=== PATIENT | male | born 1975 | race Caucasian/White ===

== ENCOUNTER → 2023-11-17 19:52 | Outpatient (REF) | payer OTHER, SELFPAY | LOC: MRI 19:52 | PROVIDERS: ATTENDING PHYSICIAN Family Medicine Sports Medicine; FAMILY PHYSICIAN Internal Medicine | DX: D16.9 Benign neoplasm of bone and articular cartilage, unspecified (principal) | CPT/HCPCS: 73723; A9575 ==

== ENCOUNTER 2024-01-23 23:03 | Inpatient (IN) | payer OTHER, SELFPAY ==
[2024-01-23 18:33] VITALS: BP 144/104
[2024-01-23 18:54] LABS: % Basophils 0.9 % (0-2); % Eosinophils 5.6 % (0-6); % Immature Granulocytes 0.3 % (0-0.5); % Lymphocytes 19.2 % (20.5-51.1); % Monocytes 6.4 % (1.7-9.3); % Neutrophils 67.6 % (42.2-75.2); Absolute Basophils 0.1 10^3/uL (0-0.2); Absolute Eosinophils 0.6 10^3/uL (0-0.7); Absolute Lymphocytes 1.9 10^3/uL (1.2-3.4); Absolute Monocytes 0.6 10^3/uL (0.1-0.6); Absolute Neutrophils 6.6 10^3/uL (1.4-6.5); Hematocrit 46.6 % (39.0-52.0); Hemoglobin 16.4 g/dL (13.0-18.0); Mean Corp Hgb Conc. 35.2 g/dL (33.0-37.0); Mean Corpuscular Hgb 30.8 pg (27.0-31.0); Mean Corpuscular Volume 87.6 fL (80.0-94.0); Mean Platelet Volume 10.8 fL (7.4-10.4); Nucleated Red Blood Cells % 0 % (-); Platelet Count 190 10^3/uL (130-400); Red Blood Cell Count 5.32 10^6/uL (4.70-6.10); Red Cell Dist. Width 12.6 % (11.5-14.5); White Blood Cell Count 9.8 10^3/uL (4.8-10.8)
[2024-01-23 19:08] LABS: ALT (SGPT) 29 U/L (0-50); AST (SGOT) 25 U/L (17-59); Albumin 4.8 g/dl (3.5-5.0); Alkaline Phosphatase 82 U/L (38-126); Blood Urea Nitrogen 21 mg/dl (9-20); Calcium 9.2 mg/dl (8.4-10.2); Carbon Dioxide 30 mmol/L (22-30); Chloride 101 mmol/L (98-107); Glucose 169 mg/dl (70-99); Potassium 4.3 mmol/L (3.5-5.1); Sodium 139 mmol/L (135-145); Total Bilirubin 0.6 mg/dl (0.2-1.3); eGFR > 60.00
--- NOTE | 2024-01-23 20:55 | ED.GENMED ---
History of Present Illness
<RICK Castillo - Last Filed: 01/23/24 23:50>
General
Chief Complaint: DVT/Possible Blood Clot
Source: patient
Exam Limitations: none
Time Seen by Provider: 01/23/24 20:34
History of Present Illness
History of Present Illness:
This is a 48 year old male that comes in with c/o left leg swelling. States that he went to the PCP yesterday as he was SOB. States that he worked out and he was very winded. States that he was given an Inhaler and this did not help. Then today his
left leg is swollen. State that he called the PCP and was told to come to the ER. States that he still feels SOB. Denies any fever, chills, chest pain, abd pain, nausea, vomiting, diarrhea, headache, dizziness, urinary burning.
Past History
<RICK Castillo - Last Filed: 01/23/24 23:50>
Past History
ED Past Medical History: Other (Hiatal hernia); Negative Asthma, HTN, Hypercholesterolemia or NIDDM
ED Past Surgical History: None
Social History
Tobacco: Non-smoker
Alcohol: Occasional
Personal:
Living: with family
Review of Systems
<RICK Castillo - Last Filed: 01/23/24 23:50>
Review of Systems
All Other Systems: ROS reviewed and negative except as documented in HPI and ROS
Constitutional: Reports no symptoms; Denies fever or chills
EENT: Reports no symptoms
Respiratory: Reports trouble breathing; Denies cough
Cardiac: Reports no symptoms; Denies chest pain
ABD/GI: Reports no symptoms; Denies abdominal pain, nausea, vomiting or diarrhea
: Reports no symptoms; Denies dysuria, frequency or urgency
Musculoskeletal: Reports edema (left lower leg with redness)
Skin: Reports other (Redness left lower leg)
Neurological: Reports no symptoms; Denies dizzy or headache
Psychiatric: Reports no symptoms
Phy Exam
<RICK Castillo - Last Filed: 01/23/24 23:50>
General Physical Exam
General Presentation: no apparent distress
General age: appears stated age
General Skin: warm and dry
General Habitus: normal
General Mental: alert
General Hydration: appears well hydrated
ENT Exam
ENT Exam: TM's normal, pharynx normal and neck supple
Eye Exam
Eye Exam: EOMI
Cardiovascular Exam
Cardiovascular Exam: regular rate/rhythm, no murmur and normal peripheral pulses
Pulmonary Exam
Pulmonary Exam: lungs clear, no respiratory distress, no rales, chest non tender, no crackles, no rhonchi, no wheezing and no cough
Gastrointestinal Exam
Gastrointestinal Exam: normal bowel sounds, non tender, soft, no organomegaly, no pulsatile mass and non distended
Musculoskeletal Exam
Musculoskeletal Exam: full ROM and edema (Left lower leg +1 pitting )
Skin Exam
Skin Exam: normal color, warm/dry, no petechia and redness (Left lower leg)
Psychiatric Exam
Psychiatric Exam: normal mood/affect
Course
<RICK Castillo - Last Filed: 01/23/24 23:50>
Orders/Labs/Results
Orders:
Orders
01/23/24 Breakfast
Regular
01/23/24 18:38
Electrocardiogram (*1) Urgent
Reason for Study: Shortness of Breath
EKG- Treatment ONCE
US Periph Venous LOWER Ext LT Urgent
Comment:
Reason For Exam: pain, swelling
01/23/24 18:48
CMP [Comprehensive Metabolic Panel] Urgent
Complete Blood Count/With Diff Urgent
01/23/24 20:54
CT Chest Pe Study Urgent
Comment: Left lower leg Positive for DVT
Reason For Exam: SOB
01/23/24 20:55
0.9% Sodium Chloride 500 ml [Nss] 500 ml IV BOLUS
01/23/24 21:53
Heparin 7,600 units IV NOW STA
01/23/24 21:[address] Non Medication Order As Directed
Physician Order: PTT 6 hours after initial start of Heparin infusion
Above order entered?: Yes
01/23/24 21:59
PTT Urgent
Prothrombin Time Urgent
01/23/24 22:00
Heparin 84348 Units/250 ml 25,000 units in 250 ml IV PER PROTOCOL
Weight to be used for heparin protocol in kilograms (kg):: 95.3
Protocol:: DVT/PE
PTT Goal Range to be used:: PTT 73 to 111 seconds
Order type:: Initial
INITIAL Infusion Dose (UNITS/KG/hr) & then follow protocol:: 18 units/kg/hr
Infusion Dose in UNITS/hr & then follow protocol (UNITS/hr):: 1,700
INFUSION RATE in mL/hr & then follow protocol (mL/hr):: 17
For DVT/PE algorithm, re-bolus for low PTT?: Yes
PTT less than or equal to 64 seconds:: Re-bolus 80 units/kg (max 10,000units). Increase by 400 units/hr
(+ 4mL/hr)
PTT 64.1 to 72.9 seconds:: Re-bolus 40 units/kg (max 5,000 units). Increase by 200 units/hr
(+ 2mL/hr)
PTT 73 to 111 seconds:: Target Range. No change in rate.
PTT 111.1 to 130.9 seconds:: Decrease rate by 200 units/hr (- 2 mL/hr)
PTT 131 to 199.9 seconds:: HOLD for 1 hr. Then decrease by 300 units/hr (- 3mL/hr)
PTT greater than or equal to 200 seconds:: HOLD for 2 hrs & Notify Provider. Then decrease by 400 units/hr
(- 4mL/hr)
Lab follow-up:: Each change, PTT q6h until 2 consecutive are therapeutic. Then
PTT daily.
01/23/24 22:13
NT-proBNP Urgent
Troponin I Urgent
01/23/24 22:15
Heparin 3,800 units IV PRN PRN
Heparin 7,600 units IV PRN PRN
01/23/24 22:27
Admit/Transfer Patient As Directed
Co-Sign Provider:
Level of Care: Inpatient admission
Assign to:: Telemetry
Physician / Group: Filipe
Diagnosis: Pulmonary Embolism
Reason for Telemetry: Arrhythmia
Date to Stop Telemetry: 01/26/24
Time to Stop Telemetry: 11:00
Reason for Hospitalization: heparin drip
Expected length of stay greater than two midnights?: Yes
ELOS- Estimated Length of Stay in days: 3
I certify the patient meets the requirements for IP care: Yes
01/23/24 22:28
Code Status As Directed
Resuscitation Status: Full Code
01/23/24 23:00
Flush (0.9% Sodium Chloride) [Flush (Nss)] See Dose Instructions IV PER PROTOCOL
01/23/24 23:35
Acetaminophen [Tylenol] 650 mg PO Q4HPRN PRN
01/23/24 23:35
Echo 2D MMode Color/Doppler Routine
Reason for Study: pulmonary embolism
Consult Notification Routine
Specialty to Notify: Hematology
HEMATOLOGY CONSULT Routine
Consulting Provider: Tami Austin
Was physician already notified: No
Reason for consult: pulmonary embolism, T4 Lytic Lesion
Heparin Protocol- PTT Orders As Directed
PTT per Heparin protocol: -Obtain CBC and baseline PTT - if not already collected.
-Obtain PTT 6 hours from start of infusion. Then, every 6 hours until 2 consecutive
PTT's are therapeutic. Then, PTT Daily.
-With each rate change, obtain PTT every 6 hours until 2 consecutive PTT's are
therapeutic. Then, PTT Daily.
Activity As Directed
Activity Level: Out of Bed-Early Mobility
With Assistance
Notify MD As Directed
Notify physician if: PTT is greater than or equal to 200.
Vital Signs As Directed
Frequency: Per unit guidelines
01/24/24 04:30
PTT Urgent
01/24/24 06:00
Basic Metabolic Panel IN AM
Complete Blood Count/No Diff IN AM
01/25/24 06:00
Complete Blood Count/No Diff Q2D
Comment: notify provider: Platelet count < 130,000 or decrease by 50% from baseline
01/26/24 11:00
DC Protocol for Telemetry ONCE
01/27/24 06:00
Complete Blood Count/No Diff Q2D
Comment: notify provider: Platelet count < 130,000 or decrease by 50% from baseline
01/29/24 06:00
Complete Blood Count/No Diff Q2D
Comment: notify provider: Platelet count < 130,000 or decrease by 50% from baseline
01/31/24 06:00
Complete Blood Count/No Diff Q2D
Comment: notify provider: Platelet count < 130,000 or decrease by 50% from baseline
02/02/24 06:00
Complete Blood Count/No Diff Q2D
Comment: notify provider: Platelet count < 130,000 or decrease by 50% from baseline
02/04/24 06:00
Complete Blood Count/No Diff Q2D
Comment: notify provider: Platelet count < 130,000 or decrease by 50% from baseline
02/06/24 06:00
Complete Blood Count/No Diff Q2D
Comment: notify provider: Platelet count < 130,000 or decrease by 50% from baseline
02/08/24 06:00
Complete Blood Count/No Diff Q2D
Comment: notify provider: Platelet count < 130,000 or decrease by 50% from baseline
Abnormal Lab Results
01/23/24 01/23/24
18:48 21:59
MPV 10.8 H fL
(7.4-10.4)
Absolute Neuts (auto) 6.6 H 10^3/uL
(1.4-6.5)
Lymphocytes % 19.2 L %
(20.5-51.1)
PT 15.6 H Sec
(11.4-14.6)
BUN 21 H mg/dl
(9-20)
Glucose 169 H mg/dl
(70-99)
01/23/24 18:48
01/23/24 18:48
Slight Dehydration. Glucose nonfasting. PT 15.6 with INR 1.25, PTT 26.2, Troponin <0.012, Pro-BNP 31.3
Vital Signs
Initial and Last Documented VS:
Initial Vital Signs
Temp Pulse Resp BP Pulse Ox
99.1 F 97 16 144/104 95
01/23/24 18:33 01/23/24 18:33 01/23/24 18:33 01/23/24 18:33 01/23/24 18:33
Last Documented Vital Signs
Temp Pulse Resp BP Pulse Ox
99.1 F 81 19 157/89 92
01/23/24 18:33 01/23/24 23:15 01/23/24 23:15 01/23/24 23:00 01/23/24 23:15
<Андрей Austin DO - Last Filed: 01/23/24 22:15>
Orders/Labs/Results
Orders:
Orders
01/23/24 Breakfast
Regular
01/23/24 18:38
Electrocardiogram (*1) Urgent
Reason for Study: Shortness of Breath
EKG- Treatment ONCE
US Periph Venous LOWER Ext LT Urgent
Comment:
Reason For Exam: pain, swelling
01/23/24 18:48
CMP [Comprehensive Metabolic Panel] Urgent
Complete Blood Count/With Diff Urgent
01/23/24 20:54
CT Chest Pe Study Urgent
Comment: Left lower leg Positive for DVT
Reason For Exam: SOB
01/23/24 20:55
0.9% Sodium Chloride 500 ml [Nss] 500 ml IV BOLUS
01/23/24 21:53
Heparin 7,600 units IV NOW STA
01/23/24 21:[address] Non Medication Order As Directed
Physician Order: PTT 6 hours after initial start of Heparin infusion
Above order entered?: Yes
01/23/24 21:59
PTT Urgent
Prothrombin Time Urgent
01/23/24 22:00
Heparin 43502 Units/250 ml 25,000 units in 250 ml IV PER PROTOCOL
Weight to be used for heparin protocol in kilograms (kg):: 95.3
Protocol:: DVT/PE
PTT Goal Range to be used:: PTT 73 to 111 seconds
Order type:: Initial
INITIAL Infusion Dose (UNITS/KG/hr) & then follow protocol:: 18 units/kg/hr
Infusion Dose in UNITS/hr & then follow protocol (UNITS/hr):: 1,700
INFUSION RATE in mL/hr & then follow protocol (mL/hr):: 17
For DVT/PE algorithm, re-bolus for low PTT?: Yes
PTT less than or equal to 64 seconds:: Re-bolus 80 units/kg (max 10,000units). Increase by 400 units/hr
(+ 4mL/hr)
PTT 64.1 to 72.9 seconds:: Re-bolus 40 units/kg (max 5,000 units). Increase by 200 units/hr
(+ 2mL/hr)
PTT 73 to 111 seconds:: Target Range. No change in rate.
PTT 111.1 to 130.9 seconds:: Decrease rate by 200 units/hr (- 2 mL/hr)
PTT 131 to 199.9 seconds:: HOLD for 1 hr. Then decrease by 300 units/hr (- 3mL/hr)
PTT greater than or equal to 200 seconds:: HOLD for 2 hrs & Notify Provider. Then decrease by 400 units/hr
(- 4mL/hr)
Lab follow-up:: Each change, PTT q6h until 2 consecutive are therapeutic. Then
PTT daily.
01/23/24 22:13
NT-proBNP Urgent
Troponin I Urgent
01/23/24 22:15
Heparin 3,800 units IV PRN PRN
Heparin 7,600 units IV PRN PRN
01/23/24 22:27
Admit/Transfer Patient As Directed
Co-Sign Provider:
Level of Care: Inpatient admission
Assign to:: Telemetry
Physician / Group: Filipe
Diagnosis: Pulmonary Embolism
Reason for Telemetry: Arrhythmia
Date to Stop Telemetry: 01/26/24
Time to Stop Telemetry: 11:00
Reason for Hospitalization: heparin drip
Expected length of stay greater than two midnights?: Yes
ELOS- Estimated Length of Stay in days: 3
I certify the patient meets the requirements for IP care: Yes
01/23/24 22:28
Code Status As Directed
Resuscitation Status: Full Code
01/23/24 23:00
Flush (0.9% Sodium Chloride) [Flush (Nss)] See Dose Instructions IV PER PROTOCOL
01/23/24 23:35
Acetaminophen [Tylenol] 650 mg PO Q4HPRN PRN
01/23/24 23:35
Echo 2D MMode Color/Doppler Routine
Reason for Study: pulmonary embolism
Consult Notification Routine
Specialty to Notify: Hematology
HEMATOLOGY CONSULT Routine
Consulting Provider: Tami Austin
Was physician already notified: No
Reason for consult: pulmonary embolism, T4 Lytic Lesion
Heparin Protocol- PTT Orders As Directed
PTT per Heparin protocol: -Obtain CBC and baseline PTT - if not already collected.
-Obtain PTT 6 hours from start of infusion. Then, every 6 hours until 2 consecutive
PTT's are therapeutic. Then, PTT Daily.
-With each rate change, obtain PTT every 6 hours until 2 consecutive PTT's are
therapeutic. Then, PTT Daily.
Activity As Directed
Activity Level: Out of Bed-Early Mobility
With Assistance
Notify MD As Directed
Notify physician if: PTT is greater than or equal to 200.
Vital Signs As Directed
Frequency: Per unit guidelines
01/24/24 04:30
PTT Urgent
01/24/24 06:00
Basic Metabolic Panel IN AM
Complete Blood Count/No Diff IN AM
01/25/24 06:00
Complete Blood Count/No Diff Q2D
Comment: notify provider: Platelet count < 130,000 or decrease by 50% from baseline
01/26/24 11:00
DC Protocol for Telemetry ONCE
01/27/24 06:00
Complete Blood Count/No Diff Q2D
Comment: notify provider: Platelet count < 130,000 or decrease by 50% from baseline
01/29/24 06:00
Complete Blood Count/No Diff Q2D
Comment: notify provider: Platelet count < 130,000 or decrease by 50% from baseline
01/31/24 06:00
Complete Blood Count/No Diff Q2D
Comment: notify provider: Platelet count < 130,000 or decrease by 50% from baseline
02/02/24 06:00
Complete Blood Count/No Diff Q2D
Comment: notify provider: Platelet count < 130,000 or decrease by 50% from baseline
02/04/24 06:00
Complete Blood Count/No Diff Q2D
Comment: notify provider: Platelet count < 130,000 or decrease by 50% from baseline
02/06/24 06:00
Complete Blood Count/No Diff Q2D
Comment: notify provider: Platelet count < 130,000 or decrease by 50% from baseline
02/08/24 06:00
Complete Blood Count/No Diff Q2D
Comment: notify provider: Platelet count < 130,000 or decrease by 50% from baseline
Abnormal Lab Results
01/23/24 01/23/24
18:48 21:59
MPV 10.8 H fL
(7.4-10.4)
Absolute Neuts (auto) 6.6 H 10^3/uL
(1.4-6.5)
Lymphocytes % 19.2 L %
(20.5-51.1)
PT 15.6 H Sec
(11.4-14.6)
BUN 21 H mg/dl
(9-20)
Glucose 169 H mg/dl
(70-99)
01/23/24 18:48
01/23/24 18:48
Vital Signs
Initial and Last Documented VS:
Initial Vital Signs
Temp Pulse Resp BP Pulse Ox
99.1 F 97 16 144/104 95
01/23/24 18:33 01/23/24 18:33 01/23/24 18:33 01/23/24 18:33 01/23/24 18:33
Last Documented Vital Signs
Temp Pulse Resp BP Pulse Ox
99.1 F 81 19 157/89 92
01/23/24 18:33 01/23/24 23:15 01/23/24 23:15 01/23/24 23:00 01/23/24 23:15
<RICK Castillo - Last Filed: 01/23/24 23:50>
MDM/Problems Addressed
Differential Diagnosis Includes:
DVT. PE
MDM/Problems Addressed:
This is a 48 year old male that comes in with c/o left leg swelling that started today. Stats that he was also seen by the PCP yesterday as he has been SOB. Patient was given an inhaler and this has not helped.
Will get labs. US and CT chest.
PERT alert was called as patient CT shows that he has right heart strain. Will place patient on IV heparin and admit. Hospitalist notified. Also explained to patient that there is also lesion non the spine that will need to be further
evaluationed.
Chronic conditions affecting care:
NA
Acute Exacerbation and/or Progression of Chronic Illness:
NA
<RICK Castillo - Last Filed: 01/23/24 23:50>
*Radiology
Radiology exam reviewed: radiology read reviewed (CT- Extensive bilateral Pulmonary emboli. CT evidence for right heart strain. Indeterminate T4 vertebral body lesion, Possible metastasis. Consider outpatient workup with dedicated bone scan. ) and
all reviewed NAD by ED Provider (US-Nonocclusive thrombus within the left popliteal vein and at the left saphenofemoral junction. )
*Pulse Oximetry
Patient hypoxic: no
*EKG
Interpreted by ED Provider?: Yes
Heart Rate: 86
Rate: normal
Rhythm: sinus
[place]: normal axis
Interval: normal interval
QRS Pattern: normal QRS
Ischemia: non-specific ST changes
*Critical Care Note
Total Time (30-74mins, 75-104mins- exclusive of procedures): Not Applicable
ED Attending Note
<RICK Castillo - Last Filed: 01/23/24 23:50>
-
Portions of this chart may have been created with voice recognition software.� Occasional wrong word or��sound alike� substitutions may have occurred due to the inherent limitations of voice recognition software.
<Андрей Austin, DO - Last Filed: 01/23/24 22:15>
ED Attending Note
Patient seen and examined by attending physician: Yes
I performed the substantive portion of visit, reviewed & personally made and approve the management plan that is documented in note by myself or JENNIFER.: Yes
ED Attending Note:
I agree with Emely's note
48-year-old male previously healthy presents with dyspnea on exertion as well as left lower extremity swelling and pain. Patient returned home after a trip to [place] last week. Returned home a couple days ago. Patient noted shortness of breath
with exertion after getting argument. In addition to the cross-country flight [id number] he also spent several hours in a car driving around [place]. Patient was seen by his primary care doctor given albuterol which has not helped. Symptoms
became significantly worse today. He typically exercises on a daily basis and when he attempted to ride on the stationary bike he became profoundly short of breath.
Physical exam
General: Awake, Alert, Oriented X3. No acute distress.
Vitals: unremarkable, not hypoxic, not hypotensive, not tachycardic
Head: Atraumatic
Eyes: Pupils equal, EOMI
Throat: Airway intact, no exudates
Neck: Trachea midline
Lungs: Clear and equal b/l
Heart: Regular rate, no murmurs
Abd: Soft, Nontender, No pulsatile mass
Neuro: Nonfocal
Skin: Warm, dry, no rash
Extremities: Significant swelling and erythema left lower extremity
Doppler of left lower extremity shows DVT
CT of the chest shows bilateral pulmonary emboli
Despite extensive clot burden the patient appears quite stable. We will immediately start heparin. Patient on protocol a PERC alert was called but the patient is not sick enough for interventional radiology. Patient will obviously require
hospitalization careful monitoring.
Discharge Plan
Departure
Patient Disposition: Admit
Date of Disposition: 01/23/24
Time of Disposition: 22:04
Admit to: IMU
Presentation/result/management discussed w/ accepting MD/DO: Hospitalist
Patient with high blood pressure during this ER visit?: Yes
Condition: Good
Covid-19: Not Applicable
Discharge Problem:
Bilateral PE with right heart strain, Deep vein thrombosis (DVT) of left lower extremity
Interventions
Interventions:
*Risk Screen - Suicide Last Done: 01/23/24 20:15
*General Assessment Last Done: 01/23/24 18:33
*Neglect/Abuse Screening Last Done: 01/23/24 20:15
ED- Fall Risk Assessment Last Done: 01/23/24 23:28
*ED COVID-19 Vaccine History Last Done: 01/23/24 18:33
*Nursing Disposition Last Done: 01/23/24 23:28
ED- Cardiac Assessment Last Done: 01/23/24 20:59
ED- Pulmonary Assessment Last Done: 01/23/24 20:59
ED-Peripheral Vascular Assessment Last Done: 01/23/24 20:59
ED-Skin Assessment Last Done: 01/23/24 20:59
Discharge Date and Time
Discharge Date/Time: 01/23/24 23:29
[2024-01-23 20:59] VITALS: BP 140/95; BMI 30.1
[2024-01-23] MEDS: NSS 500 IV (21:41)
[2024-01-23 21:58] VITALS: BP 136/89
[2024-01-23 22:00] VITALS: BP 141/86
[2024-01-23] MEDS: HEPARIN 7600 UNITS IV (22:11)
[2024-01-23 22:13] LABS: INR 1.25; PT 15.6 Sec (11.4-14.6)
[2024-01-23 22:14] LABS: APTT 26.2 Sec (23.4-35.0)
[2024-01-23] MEDS: FLUSH (NSS) 1 FLUSH IV (22:19)
[2024-01-23] MEDS: HEPARIN 25000 UNITS/250 ML IV (22:20)
--- NOTE | 2024-01-23 22:41 | HPS.HSE ---
Family Physician
-
Family Physician: Verito Truong
Chief Complaint
-
Shortness of Breath
History of Present Illness
Patient is a 48 y/o male without signficant past medical history who presents with left leg swelling and shortness of breath. Patient reports he recently traveled to [place] for vacation. He notes while playing golf on vacation he was mildly short of
breath which is unusual for him. On the return trip home they drove 5 hours to the airport than had a 5 hour flight home. Upon returning home he noted worsening shortness of breath. He admits to left lower extremity swelling and redness. He
denies chest pain. He denies prior history of DVT/PE. He denies and cancer history. He denies weight loss.
Medical History
Past Medical History
Past Medical History: Reports Other
Additional Past Medical History:
Osteochondroma
Past Surgical History: Reports None
Social History
Tobacco: Non-smoker
Alcohol: Occasional
Family History
Family History: Not pertinent
Allergies / Home Medications
Allergies reflects when Allergies were last updated in [facility].
Home Medications with original date entered in [facility]
Allergy/Medication List:
Allergies
Allergy/AdvReac Type Severity Reaction Status Date / Time
Penicillins Allergy Hives Verified 01/23/24 18:36
Home Medications
albuterol sulfate 90 mcg/actuation aerosol inhaler 1 puff inhalation R Q4HPRN PRN sob 01/23/24
ibuprofen 200 mg tablet (Advil) 400 mg PO DAILYPRN PRN mild pain 01/23/24
tadalafil 5 mg tablet 5 mg PO DAILY PRN ED 01/23/24
Review of Systems
-
A 12 point ROS was completed and negative except as noted: Yes
Constitutional: Denies Fever, Weight Loss or Chills
Respiratory: Reports Trouble Breathing; Denies Cough
Cardiac: Denies Chest Pain or Palpitations
Musculoskeletal: Reports Edema
Physical Exam
Vital Signs
Vital Signs
Temp Pulse Resp BP Pulse Ox
99.1 F 71 20 141/86 94
01/23/24 18:33 01/23/24 22:30 01/23/24 22:30 01/23/24 22:00 01/23/24 22:30
Physical Exam
General: Comfortable and Conversant
HEENT: Moist mucous membranes and Atraumatic
Respiratory: Clear and Non Labored Respirations
Cardiac: S1/S2 and Regular Rhythm; No Tachycardia
GI: Soft and Non Tender
Rectal: Deferred by Provider
Musculoskeletal: No Clubbing, No Cyanosis and Edema, Left Lower Extremity
Skin: Warm, Dry and Other (Erythema LLE)
Neuro: Awake, Alert, Oriented and Nonfocal/grossly intact
Psych: Calm
Laboratory Results
-
01/23/24 18:48
01/23/24 18:48
Laboratory Results
PT 15.6 Sec (11.4-14.6) H 01/23/24 21:59
INR 1.25 01/23/24 21:59
APTT 26.2 Sec (23.4-35.0) 01/23/24 21:59
Total Bilirubin 0.6 mg/dl (0.2-1.3) 01/23/24 18:48
AST 25 U/L (17-59) 01/23/24 18:48
ALT 29 U/L (0-50) 01/23/24 18:48
Alkaline Phosphatase 82 U/L (38-126) 01/23/24 18:48
Data Reviewed
-
CT Scan: Report Reviewed by me
Lab Data: Labs Reviewed by me
Impression/Plan
-
Submassive Bilateral Pulmonary Embolism
-Consult Hematology/Oncology
-Continue heparin drip
-Check Echo
T4 Vertebral Lesion
-Patient will likely need further imaging - Defer to Hematology/Oncology
Osteochondroma
-Patient reports has been stable for many years
Code Status:Full Code
[2024-01-23 22:46] LABS: NT-proBNP 31.3 pg/ml; Troponin I < 0.012 ng/ml
[2024-01-23 23:00] VITALS: BP 157/89
--- NOTE | 2024-01-23 23:17 | W.PN.UPDATE ---
Update Note
Progress Note Update
This is an addendum to the H&P written by FAIZAN Lee on 01/23/2024.
48-year-old male without past medical history presenting with left lower extremity swelling and shortness of breath.�
Venous ultrasound of left lower extremity shows nonocclusive thrombus within the left popliteal vein and left saphenofemoral junction.� CT PE shows extensive pulmonary emboli with evidence of right heart strain as well as T4 vertebral body lesion
possibly metastasis.�
DVT/PE provoked due to immobility/possible underlying malignancy.�Heparin drip started.� Check echocardiogram.� Check CT chest abdomen pelvis to evaluate for primary source of potential malignancy.� Oncology consulted.
[2024-01-23 23:52] VITALS: BP 145/95; BMI 29.4
[2024-01-24 03:00] VITALS: BP 141/86
[2024-01-24 04:47] LABS: Hematocrit 44.1 % (39.0-52.0); Hemoglobin 15.5 g/dL (13.0-18.0); Mean Corp Hgb Conc. 35.1 g/dL (33.0-37.0); Mean Corpuscular Hgb 30.9 pg (27.0-31.0); Mean Platelet Volume 10.6 fL (7.4-10.4); Platelet Count 183 10^3/uL (130-400); Red Blood Cell Count 5.01 10^6/uL (4.70-6.10); Red Cell Dist. Width 12.8 % (11.5-14.5); White Blood Cell Count 9.4 10^3/uL (4.8-10.8)
[2024-01-24 05:12] LABS: Blood Urea Nitrogen 19 mg/dl (9-20); Calcium 8.6 mg/dl (8.4-10.2); Carbon Dioxide 24 mmol/L (22-30); Chloride 104 mmol/L (98-107); Estimated Creatinine Clearance 115 ml/min; Glucose 107 mg/dl (70-99); Potassium 4.1 mmol/L (3.5-5.1); Sodium 138 mmol/L (135-145); eGFR > 60.00
--- NOTE | 2024-01-24 06:04 | CON.ONC ---
Impression
Impression
LLE DVT/PE with right heart strain
Indeterminant T4 vertebral body lesion
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
Plan
Plan
IV heparin started.
Transition to DoAC such as Eliquis 10 mg PO BID x 7 days then 5 mg PO BID x 3-6 mo.
Reviewed options regarding malignancy workup. The T4 spine lesion needs to be worked up but is still unlikely to be malignant.
Patient has a relationship with Dr. Arcadio Mallory MD, orthopedic oncology at [facility].
I have reviewed that he should contact Dr. Mallory who can help him workup the T4 lesion with imaging and/or biopsy if necessary.
Patients with osteochondromas are prone to other benign bone lesions and rarely osteochondromas can transition to malignant depending on literature between 1 and 5% risk.
If patient wishes workup locally, outpatient bone scan as 1st maneuver to assess whether the L4 lesion in concerning for malignancy with further orthopedic workup PRN.
Multiple questions were asked and answered. Card given for follow-up if needed.
Anticipate discharge shortly. If further workup desired to be done inpatient, I would start with a bone scan. If he is discovered to have a systemic malignancy requiring treatment, we can see him shortly for follow-up.
Patient History
History of Present Illness
CC: SOB
HPI: 48 y/o healthy male presented to ER with left leg swelling and shortness of breath. Recently traveled to [place] for vacation. He first noted SOB while playing golf. Travel took 5 hours to and from airport and 5 hour flight. Upon returning
home he noted worsening shortness of breath. No chest pain. He denies prior history of DVT/PE. He denies and cancer history. He denies weight loss. CTA showed extensive bilateral pulmonary emboli with CT evidence for right heart strain. Also
noted was an indeterminate T4 vertebral body lesion, 'possibly metastasis.' A full CT C/A/P has been suggested by attending but not ordered. LE Doppler U/S shows nonocclusive thrombus within the left popliteal vein and left saphenofemoral junction.
He was started on IV heparin and an echocardiogram has been ordered.
Regarding his osteochondroma, he was diagnosed at age 13 and has been observed by orthopedic oncology. Initially he was followed by Dr. Thomas Walters but more recently transitioned his care to Dr. Arcadoi Mallory MD at [facility] (orthopedic oncology).
The osteochondroma has been stable and followed without significant change.
Patient has no other constitutional symptoms. No CP pain or bleeding. No unexplained weight loss. Just some mild back pain that lasted for a day or so during the golf trip which he attributes to overdoing it at the golf course.
Past-Medical/Surgical History
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 - MRI 11/20/2023)
PSH: None
SH:
Tobacco: Non-smoker
Alcohol: Occasional
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
FH:
Father with bladder cancer at advanced age. No other family history of malignancy, or thrombosis
Patient Medication
�Medication �Instructions �Recorded �Confirmed �Last Taken �Type
albuterol sulfate 90 mcg/actuation 1 puff inhalation R Q4HPRN PRN sob 01/23/24 01/23/24 01/23/24 History
aerosol inhaler
ibuprofen 200 mg tablet (Advil) 400 mg PO DAILYPRN PRN mild pain 01/23/24 01/23/24 01/23/24 History
200 mg
tadalafil 5 mg tablet 5 mg PO DAILY PRN ED 01/23/24 01/23/24 2 Days Ago History
~01/21/24
Active Medications
Generic Name Dose Route Start Last Admin
Trade Name Freq PRN Reason Stop Dose Admin
Acetaminophen 650 mg 01/23/24 23:35
Acetaminophen 325 Mg Tablet PO 02/20/24 23:34
Q4HPRN PRN
mild pain/ fever>100.5F
Heparin Sodium 7,600 units 01/23/24 22:15
Heparin 80 Units/Kg Rebolus-Do Not Discard IV 02/20/24 22:14
PRN PRN
PTT < OR = 64 seconds
Heparin Sodium 3,800 units 01/23/24 22:15
Heparin 40 Units/Kg Rebolus-Do Not Discard IV 02/20/24 22:14
PRN PRN
PTT = 64.1 to 72.9 seconds
Heparin Sodium 25,000 units in 250 mls @ 0 mls/hr 01/23/24 22:00 01/23/24 22:20
Heparin 34329 Units/250 Ml IV 250 mls
PER PROTOCOL WILVER Administration
Protocol
Per Protocol
Sodium Chloride 0 flush 01/23/24 23:00 01/23/24 22:19
Sodium Chloride 0.9% (Flush) Syringe IV 02/20/24 22:59 1 flush
PER PROTOCOL WILVER Administration
Review of Systems
-
History Source: Patient
All Other Systems: Reviewed and Negative
Constitutional: Reports No Symptoms
Respiratory: Reports Trouble Breathing
Cardiac: Reports No Symptoms
: Reports No Symptoms
Musculoskeletal: Reports Edema
Hematologic/Lymphatic: Denies Bleeding
Physical Exam
-
General: Well Developed, Well Nourished and No Apparent Distress
Cardiology: Normal Sinus Rhythm, S1 and S2
Pulmonary: Clear
GI: Soft
Extremities: Edema (1+ LLE Edema)
Labs
Lab Results
WBC 9.4 10^3/uL (4.8-10.8) 01/24/24 04:32
RBC 5.01 10^6/uL (4.70-6.10) 01/24/24 04:32
Hgb 15.5 g/dL (13.0-18.0) 01/24/24 04:32
Hct 44.1 % (39.0-52.0) 01/24/24 04:32
MCV 88.0 fL (80.0-94.0) 01/24/24 04:32
MCH 30.9 pg (27.0-31.0) 01/24/24 04:32
MCHC 35.1 g/dL (33.0-37.0) 01/24/24 04:32
RDW 12.8 % (11.5-14.5) 01/24/24 04:32
Plt Count 183 10^3/uL (130-400) 01/24/24 04:32
MPV 10.6 fL (7.4-10.4) H 01/24/24 04:32
Abs Immat Gran (auto) 0.0 10^3/uL (0-0.05) 01/23/24 18:48
Absolute Neuts (auto) 6.6 10^3/uL (1.4-6.5) H 01/23/24 18:48
Absolute Lymphs (auto) 1.9 10^3/uL (1.2-3.4) 01/23/24 18:48
Absolute Monos (auto) 0.6 10^3/uL (0.1-0.6) 01/23/24 18:48
Absolute Eos (auto) 0.6 10^3/uL (0-0.7) 01/23/24 18:48
Absolute Basos (auto) 0.1 10^3/uL (0-0.2) 01/23/24 18:48
Immature Gran % 0.3 % (0-0.5) 01/23/24 18:48
Neutrophils % 67.6 % (42.2-75.2) 01/23/24 18:48
Lymphocytes % 19.2 % (20.5-51.1) L 01/23/24 18:48
Monocytes % 6.4 % (1.7-9.3) 01/23/24 18:48
Eosinophils % 5.6 % (0-6) 01/23/24 18:48
Basophils % 0.9 % (0-2) 01/23/24 18:48
Creatinine 0.8 mg/dL (0.7-1.3) 01/24/24 04:32
Vital Signs
Vital Signs
Temp Pulse Resp BP Pulse Ox
98.1 F 69 16 141/86 96
01/24/24 03:00 01/24/24 03:00 01/24/24 03:00 01/24/24 03:00 01/24/24 03:00
--- NOTE | 2024-01-24 06:12 | PTCARENOTE ---
Pt admitted from ED. AAOx3. Reporting pain to LLE, denies need for PRN meds at this time. Lungs clear, pt on room air. No N/V or stool. Pt ambulating without issues. Heparin gtt infusing upon arrival to unit. Labs collected at 0430 and per
protocol rate changed. awaiting further plan.
[2024-01-24 07:00] VITALS: BP 151/98
--- NOTE | 2024-01-24 10:17 | PTCARENOTE ---
pt denies pain, tolerating diet, independent to BR, vss, Heparin infusing without difficulty, will continue to monitor.
[2024-01-24 11:00] VITALS: BP 138/95
[2024-01-24 11:05] LABS: APTT 68.7 Sec (23.4-35.0)
--- NOTE | 2024-01-24 11:51 | W.DS.TRANS ---
DC Summary - [employer]
-
Discharge Instructions:
Discharge Diagnosis/Procedures Bilateral pulmonary motion, left leg DVT, T4
vertebral body lesion
Diet Regular
Activity As tolerated
Driving Restrictions As prior to admission
Bathing Restrictions None
Instructions:
Stand-Alone Forms:
Changes to Home Medications: No
Discharge Medications:
DC Medications w/original date entered in [facility]
albuterol sulfate 90 mcg/actuation aerosol inhaler 1 puff inhalation R Q4HPRN PRN sob 01/23/24
tadalafil 5 mg tablet 5 mg PO DAILY PRN ED 01/23/24
apixaban 5 mg (74 tabs) tablets in a dose pack (Eliquis DVT-PE Treat 30D Start) See Rx Instructions PO .COMPLEX #74 ea 01/24/24
Home Medication Changes
Pending Results: No
[2024-01-24] MEDS: ELIQUIS 10 MG PO (12:12)
--- NOTE | 2024-01-24 12:23 | W.PN.HOSP.TC ---
Today's Communication/Plan
-
Discharge
Assessment / Plan
Assessment / Plan
Gen-AAOx3, NAD
HEENT-NC, AT, anicteric, clear oral mm
Neck-supple
CV-reg, no M, +S1/S2
Lungs-clear B/L
Abd-soft, NT, ND
Ext-left lower extremity edema
Musculoskeletal-no cyanosis, clubbing
Skin-warm and dry
Neuro-grossly non-focal
Psych-calm, cooperative
Acute bilateral pulmonary emboli -CT chest confirms extensive bilateral PE. Right heart strain. Troponin negative. Echocardiogram without RV failure. Transition to Eliquis today. Anticipate will need long-term anticoagulation. Seen by
hematology/oncology, outpatient follow-up.
Left lower extremity acute DVT -as above. Doppler ultrasound confirms nonocclusive thrombus in the left popliteal vein and at the left saphenofemoral junction. Recommend compression stockings.
T4 vertebral body lesion -rule out metastasis. Will need outpatient evaluation. Discussed with patient and family. Patient denies back pain.
Left intertrochanteric osteochondroma - involving the proximal femur. This was noted on prior MRI from October. He plans to follow-up with orthopedic oncology. Denies left hip pain.
Obesity due to excess calories
Full code
Dispo -medically stable for discharge today. Outpatient follow-up. Updated family at the bedside.
31 minutes spent in discharge process.
Anticipated Discharge: Today
Subjective/Interval History
-
Date of Service: January 24, 2024
Patient seen/examined, no SOB at rest. No complaints.
Objective Data
-
Labs:
Laboratory Results
01/24/24 01/24/24 01/24/24
04:32 10:47 17:10
WBC 9.4
Hgb 15.5
Hct 44.1
Plt Count 183
APTT 114.0 H 68.7 H Cancelled
Sodium 138
Potassium 4.1
Chloride 104
Carbon Dioxide 24
BUN 19
Creatinine 0.8
Glucose 107 H
Calcium 8.6
Vital Signs:
Vital Signs
Temp Pulse Resp BP Pulse Ox
98.3 F 74 18 138/95 92
01/24/24 11:00 01/24/24 11:00 01/24/24 11:00 01/24/24 11:00 01/24/24 11:00
I&O
01/23/24 01/24/24 01/25/24
06:59 06:59 06:59
Intake Total 420 / 420
Balance 420 / 420
Review of Systems
-
History Source: Patient
All other systems: Reviewed and negative
--- NOTE | 2024-01-24 12:26 | CM ---
Addendum entered by Inge Zelaya [facility] 01/24/24 14:37:
Received notification from patient's RN, that patient pharmacy does not have the pill packs in stock and won't have it until tomorrow. Placed a call to [facility] in [place] and spoke with a Pharmacist named, Alphonso who stated that he has loose
pills but won't have packs until tomorrow. He stated that if he gets a prescription for 4 5mg pills, he should have the packs by tomorrow. He stated that the nearest [facility] who will have the packs is [place].
Spoke with pharmacist for [facility] who stated that patient, if ok with attending, can take loose pills for the course of his treatment and does not need the pill packs.
Messaged attending who stated that this would be fine and he would send an electronic script over to [facility] indicating that loose pills are fine.
Placed a call to Patient's pharmacy again and spoke with Alphonso to update that script will be changed. He confirmed that they have enough pills to supply patient.
Met with patient and family to update. He stated that he will picker feeder script on the way home.
Original Note:
Reviewed chart, spoke with attending who stated that patient will be on Eliquis for 7 days 10 BID and then 5mg BID after that. Met with patient to obtain information for assessment. Patient stated that he lives with his in a two story home with
a basement and two steps to enter. Patient described herself as independent with his ADLs, personal care, dressing and bathing. 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 He drives and can get to his appointments and do his own
shopping.
Patient denied any DME in his home.
He has never had VN services.
He has not been to a SNF in the past.
Patient has a prescription plan and uses [facility] in [place] for all of his medications.
His PCP is, Verito Truong.
Plan: Patient would like to return home with his when discharged. He was provided with 30 day Eliquis card and 10 dollar card to provide to pharmacist. Attending aware.
== END 2024-01-24 14:55 | disposition home or self-care (01) | DRG 176 ==
LOC: 3 WEST ACU 23:03
PROVIDERS: Clinical Nurse Specialist Family Health; Emergency Medicine; Physician Assistant Medical; ADMITTING PHYSICIAN Hospitalist; ATTENDING PHYSICIAN Hospitalist; CONSULT PHYSICIAN Internal Medicine Hematology & Oncology; EMERGENCY PHYSICIAN Emergency Medicine; FAMILY PHYSICIAN Internal Medicine; OTHER PHYSICIAN Internal Medicine Hematology & Oncology
DX: I26.99 Other pulmonary embolism without acute cor pulmonale (principal); I82.402 Acute embolism and thrombosis of unspecified deep veins of left lower extremity; E66.09 Other obesity due to excess calories; Z68.29 Body mass index [BMI] 29.0-29.9, adult; D16.9 Benign neoplasm of bone and articular cartilage, unspecified; M89.9 Disorder of bone, unspecified
CPT/HCPCS: 71275; 80048; 80053; 83880; 84484; 85025; 85027; 85610; 85730; 93005; 93306; 93971; 96361; 96374; 99285; Q9967

== ENCOUNTER → 2024-03-05 12:29 | Outpatient (REF) | payer OTHER, SELFPAY | LOC: RAD 12:29 | PROVIDERS: ATTENDING PHYSICIAN Internal Medicine | DX: D16.9 Benign neoplasm of bone and articular cartilage, unspecified (principal); I82.502 Chronic embolism and thrombosis of unspecified deep veins of left lower extremity; I26.99 Other pulmonary embolism without acute cor pulmonale; M89.9 Disorder of bone, unspecified | CPT/HCPCS: 74177; Q9967 ==

== ENCOUNTER → 2024-03-11 16:00 | Outpatient (REF) | payer OTHER, SELFPAY | LOC: MRI 16:00 | PROVIDERS: ATTENDING PHYSICIAN Orthopaedic Surgery Orthopaedic Surgery of the Spine; FAMILY PHYSICIAN Internal Medicine | DX: M54.9 Dorsalgia, unspecified (principal); R22.9 Localized swelling, mass and lump, unspecified; R22.2 Localized swelling, mass and lump, trunk | CPT/HCPCS: 72157; A9575 ==

== ENCOUNTER → 2024-11-22 07:28 | Outpatient (REF) | payer OTHER, SELFPAY | LOC: PAVMRI 07:28 | PROVIDERS: ATTENDING PHYSICIAN Family Medicine Sports Medicine; FAMILY PHYSICIAN Internal Medicine | DX: D16.9 Benign neoplasm of bone and articular cartilage, unspecified (principal) | CPT/HCPCS: 73721 ==

== ENCOUNTER → 2024-11-29 08:11 | Outpatient (REF) | payer OTHER, SELFPAY | LOC: RST 08:11 | PROVIDERS: ATTENDING PHYSICIAN Family Medicine | DX: R13.19 Other dysphagia (principal) | CPT/HCPCS: 74230; 92611 ==

== ENCOUNTER 2025-01-10 06:19 | Day surgery (SDC) | payer OTHER, SELFPAY | END 2025-01-10 11:32 | disposition home or self-care (01) | LOC: GI 06:19 | PROVIDERS: ATTENDING PHYSICIAN Internal Medicine | DX: R13.10 Dysphagia, unspecified (principal); K22.89 Other specified disease of esophagus; K31.7 Polyp of stomach and duodenum; K31.9 Disease of stomach and duodenum, unspecified; K20.0 Eosinophilic esophagitis | CPT/HCPCS: 43239; 88305; 88342 ==

== ENCOUNTER 2025-05-19 06:16 | Day surgery (SDC) | payer OTHER, SELFPAY | END 2025-05-19 10:21 | disposition home or self-care (01) | LOC: GI 06:16 | PROVIDERS: ATTENDING PHYSICIAN Internal Medicine | DX: K22.89 Other specified disease of esophagus (principal) | CPT/HCPCS: 43239; 88305; 88342 ==